=== PATIENT | female | born 2000 | race Caucasian/White ===

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

== ENCOUNTER → 2019-03-20 | Outpatient (CLI) | payer OTHER ==
[~2019-03-20] VITALS: Ht 172 cm; Wt 93.1 kg
[~2019-03-20] MED LIST changes: +FLUO40CA PO
== END | disposition home or self-care (01) ==
LOC: PREOP 05:39
PROVIDERS: ATTEND Surgery
DX: Z01.818 Encounter for other preprocedural examination (principal)

== ENCOUNTER 2019-03-25 13:00 | Day surgery (SDC) | payer MEDICAID, OTHER ==
[~2019-03-25] VITALS: Ht 172 cm; Wt 93.1 kg
[2019-03-25] MEDS ORDERED: LACTATED RINGERS 1,000 ML IV ONE (13:17)
[2019-03-25] MEDS ORDERED: LACTATED RINGERS 1,000 ML IV STA (13:32)
--- NOTE | 2019-03-25 13:46 | Progress Note-Pre Operative ---
Pre-Operative Progress Note H&P Reviewed The H&P was reviewed, patient examined and no changes noted. Time Seen by Provider: 13:42 Date H&P Reviewed: Mar 25, 2019 Time H&P Reviewed: 13:40 Pre-Operative Diagnosis: rectal bleed MERLYN WADSWORTH DO Mar 25, 2019 13:46
[2019-03-25 13:53] VITALS: BP 122/80
[2019-03-25] MEDS ORDERED: proPOfol 200 MG/20 ML (DIPRIVAN) VIAL IV ONE ×3 (14:18→14:34)
[2019-03-25] MEDS ORDERED: MIDAZOLAM 2 MG/2 ML (VERSED) VIAL ONE (14:20)
--- NOTE | 2019-03-25 14:43 | Anesthesia-General Post-Op ---
MAC Patient Condition Mental Status/LOC: Same as Preop Cardiovascular: Satisfactory Nausea/Vomiting: Absent Respiratory: Satisfactory Pain: Controlled Complications: Absent Post Op Complications Complications None Follow Up Care/Instructions Patient Instructions None needed. Anesthesiology Discharge Order Discharge Order Patient is doing well, no complaints, stable vital signs, no apparent adverse anesthesia problems. No complications reported per nursing. ARMOND CABA CRNA Mar 25, 2019 14:43
[2019-03-25 14:55] VITALS: BP 98/54
--- NOTE | 2019-03-25 14:58 | Progress Note-Post Operative ---
Post-Operative Progess Note Surgeon (s)/Agricultural Loan Officer (s) Surgeon MERLYN WADSWORTH DO Agricultural Loan Officer: Galindo Gruber MSIII Pre-Operative Diagnosis rectal bleed Post-Operative Diagnosis Anal fissure Internal Hemorrhoids Procedure & Operative Findings Date of Procedure 03/25/19 Procedure Performed/Findings Colonoscopy Anesthesia Type IV sedation by Anesthesiologist Estimated Blood Loss Estimated blood loss (mL): none Specimens/Packing Specimens Removed none MERLYN WADSWORTH DO Mar 25, 2019 14:58
--- NOTE | 2019-03-25 14:59 | Endoscopy Discharge Instruct ---
Endo Procedure/Findings Findings 1.: Internal Hemorrhoids 2.: Other Findings (anal fissure) Discharge Instructions - Activity: You might feel a little sleepy until tomorrow. This is due to the medicine you received to relax you. Until tomorrow, you should: NOT drive a car, operate machinery or power tools. NOT drink any alcoholic beverages. NOT make any important decisions or sign importortant papers. Do not return to work until tomorrow, unless otherwise instructed. Resume previous activities tomorrow. Diet: Start by taking liquids. If you tolerate liquids, advance to solid food. make an appointment for one week Notify Physician - If you experience excessive bleeding, unusual abdominal pain, fever, or chest pain, contact your doctor immediately. MERLYN WADSWORTH DO Mar 25, 2019 14:59
[2019-03-25 15:00] VITALS: BP 106/60
[2019-03-25 15:05] VITALS: BP 108/61
[2019-03-25 15:30] VITALS: BP 106/68
[2019-03-25 15:39] VITALS: BP 106/68
--- NOTE | 2019-03-26 00:39 | OPERATIVE REPORT ---
DATE OF SERVICE: PREOPERATIVE DIAGNOSIS: Rectal bleed. POSTOPERATIVE DIAGNOSES: 1. Anal fissure. 2. Internal hemorrhoids, poor prep. PROCEDURE: Colonoscopy. SURGEON: Ishan De La Rosa DO CHEST PAINTING LEADER: Galindo Gruber, medical student level 3. ANESTHESIA: IV sedation by the anesthesiologist. SPECIMENS: None. BLOOD LOSS: None. FLUIDS: Per anesthesia. POSTOPERATIVE CONDITION: Stable. INDICATION FOR PROCEDURE: The patient is a 18-year-old female who has had a couple of episodes of rectal bleeding and needed a workup. FINDINGS: The patient had some small internal hemorrhoids and she had pretty large anal fissure. Picture taken. This is most likely cause of her bleeding. She also unfortunately had a poor prep, but did not see any ulcerations or inflammation in the colon. PROCEDURE NOTE: After informed consent was obtained, the patient was brought to the endoscopy suite, placed in the bed left lateral decubitus position. She was administered IV sedation by the anesthesiologist who monitored her vitals the entire time, heart rate, blood pressure and pulse ox and the scope was inserted, pushed all the way into about 140 cm, able to get to the cecum, took a picture of appendiceal orifice, noted the ileocecal valve and then slowly withdrew the scope insufflating look circumferentially rivera looking at the cecum, up the ascending colon to the hepatic flexure, then down the transverse colon, splenic flexure, into the descending colon and then down into the sigmoid and finally into the rectum. Unfortunately, throughout here, she had a lot of retained fecal material most too large to be suctioned out, could see most the rivera, did not see the obvious inflammation, ulcerations, but again could have missed where some of this was covering, retroflexed the rectal vault, saw some minimal internal hemorrhoids, took a picture of this and then pulled the scope out. She had a pretty large anal fissure, took a picture of this. This is most likely the cause of her bleeding. The patient tolerated the procedure, recovered in endoscopy suite. Job ID: [id number] DocumentID: [id number] Dictated Date: 03/25/2019 16:36:02 Flower Grader Date: 03/26/2019 00:38:14 Dictated By: ISHAN DE LA ROSA DO [facility]
== END 2019-03-25 15:45 | disposition home or self-care (01) ==
LOC: ENDO 13:00
PROVIDERS: ATTEND Surgery
DX: K60.2 Anal fissure, unspecified (principal); K64.8 Other hemorrhoids; F41.9 Anxiety disorder, unspecified; F32.9 Major depressive disorder, single episode, unspecified; K58.9 Irritable bowel syndrome, unspecified; E66.9 Obesity, unspecified; Z68.31 Body mass index [BMI] 31.0-31.9, adult; Z88.2 Allergy status to sulfonamides; Z79.899 Other long term (current) drug therapy; Z87.440 Personal history of urinary (tract) infections; Z82.49 Family history of ischemic heart disease and other diseases of the circulatory system
CPT/HCPCS: 84703

== ENCOUNTER 2019-06-20 01:28 | Emergency (ER) | payer SELFPAY ==
[~2019-06-20] VITALS: Ht 175 cm; Wt 99.5 kg
[2019-06-20 01:47] LABS: BILIRUBIN,URINE NEGATIVE (NEGATIVE); CLARITY,URINE CLEAR; COLOR,URINE YELLOW; GLUCOSE, URINE (UA) NEGATIVE (NEGATIVE); KETONES,URINE NEGATIVE (NEGATIVE); LEUKOCYTE ESTERASE ,URINE TRACE (NEGATIVE); NITRITE,URINE NEGATIVE (NEGATIVE); PH,URINE 6.5 (5-9); PROTEIN,URINE NEGATIVE (NEGATIVE)
[2019-06-20 01:53] LABS: BACTERIA,URINE TRACE /HPF; RBC,URINE 0-2 /HPF; WBC,URINE 0-2 /HPF
[2019-06-20 01:56] LABS: AMPHETAMINE SCREEN, URINE NEGATIVE (NEGATIVE); BARBITURATE SCREEN URINE NEGATIVE (NEGATIVE); BENZODIAZEPINES SCREEN URINE NEGATIVE (NEGATIVE); CANNABINOID SCREEN, URINE NEGATIVE (NEGATIVE); COCAINE SCREEN URINE NEGATIVE (NEGATIVE); METHADONE STAT NEGATIVE (NEGATIVE); METHAMPHETAMINE SCREEN URINE S NEGATIVE (NEGATIVE); OPIATE SCREEN URINE NEGATIVE (NEGATIVE); OXYCODONE STAT NEGATIVE (NEGATIVE); PROPOXYPHENE STAT NEGATIVE (NEGATIVE); TRICYCLIC ANTIDEPRESSANTS SCRE NEGATIVE (NEGATIVE)
--- NOTE | 2019-06-20 02:17 | ED Chest Pain ---
General Chief Complaint: Chest Pain Stated Complaint: CP Nursing Triage Note: sternal chest pain radiating to back x1hr. Nursing Sepsis Screen: No Definite Risk Source: patient History of Present Illness Date Seen by Provider: Jun 20, 2019 Time Seen by Provider: 01:37 Initial Comments PT ARRIVES VIA POV FROM HOME WITH MOTHER PT STATES SHE WOKE UP AT 0030 WITH PAIN IN LEFT UPPER CHEST, AND ALL ACROSS MID AND UPPER BACK STATES IT HURTS TO TAKE A DEEP BREATH OR LAY DOWN NOTHING IMPROVES PAIN, BUT HAS NOT TAKEN ANYTHING FOR PAIN NO SHORTNESS OF BREATH NO PALPITATIONS NO COUGH NO FEVER STATES SHE TOOK HER BP AT 0030 AND WAS 160/116, SO CAME HERE. DENIES ANY HISTORY OF HTN OR CARDIAC PROBLEMS STATES SHE USED TO GET PNEUMONIA WHEN SHE WAS VERY YOUNG, BUT NO PROBLEMS FOR MANY YEARS STATES A COUPLE OF WEEKS AGO, SHE HAD SORE THROAT AND URI SYMPTOMS--WENT TO WALK IN CLINIC AT [facility], AND GOT A SHOT OF STEROIDS AND THOSE SYMPTOMS WENT AWAY AND HAVE NOT RETURNED. 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 --NOT NORMAL ACTIVITY FOR HER. LMP 05/27/19. NORMAL. NO CONTROL PCP: DR. BALDWIN Allergies and Home Medications Allergies Coded Allergies: Sulfa (Sulfonamide Antibiotics) (Unverified Allergy, Unknown, 09/08/10) Home Medications Ketorolac Tromethamine 10 Mg Tablet, 10 MG PO Q6H Prescribed by: CHAO HUNTLEY on 06/20/19346 Orphenadrine Citrate 100 Mg Tablet.er, 100 MG PO BID FOR MUSCLE SPASMS Prescribed by: CHAO HUNTLEY on 06/20/19346 Patient Home Medication List Home Medication List Reviewed: Yes Review of Systems Review of Systems Constitutional: no symptoms reported EENTM: No Symptoms Reported Respiratory: See HPI; Denies Cough, Denies Orthopnea, Denies Shortness of Air Cardiovascular: See HPI, Chest Pain; Denies Edema, Denies Irregular Heart Rate, Denies Lightheadedness, Denies Palpitations, Denies Syncope Gastrointestinal: No Symptoms Reported; Denies Abdominal Pain, Denies Nausea, Denies Vomiting Genitourinary: No Symptoms Reported Musculoskeletal: see HPI, back pain Skin: no symptoms reported Psychiatric/Neurological: No Symptoms Reported Endocrine: No Symptoms Reported Hematologic/Lymphatic: No Symptoms Reported Past [id number]-Fqyhzm-Mhlyom Hx Past Med/Social Hx: Reviewed and Corrections made Patient Social History Alcohol Use: Denies Use Recreational Drug Use: No Smoking Status: Never a Smoker 2nd Hand Smoke Exposure: Yes (STATES THAT PERSON SMOKES OUTSIDE) Recent Foreign Travel: No Contact w/Someone Who Travel: No Recent Infectious Disease Expo: No Recent Hopitalizations: No Physical Abuse: No Sexual Abuse: No Mistreated: No Fear: No Immunizations Up To Date Tetanus Booster (TDap): Less than 5yrs PED Vaccines UTD: Yes Date of Influenza Vaccine: Apr 09, 2018 Seasonal Allergies Seasonal Allergies: Yes Past Medical History Surgeries: Yes (WISDOM TEETH) Adenoidectomy, Appendectomy, Tonsillectomy Respiratory: Yes (PNEUMONIA SMALL CHILD. NO PROBLEMS SINCE) Pneumonia Cardiac: No Neurological: No : No Last Menstrual Period: May 27, 2019 Reproductive Disorders: No Female Reproductive Disorders: Denies Sexually Transmitted Disease: No HIV/AIDS: No Genitourinary: Yes UTI-Chronic Gastrointestinal: Yes Chronic Constipation, Chronic Diarrhea, Irritable Bowel Musculoskeletal: No Endocrine: No HEENT: Yes Tonsilitis Loss of Vision: Denies Hearing Impairment: Denies Cancer: No Psychosocial: Yes Anxiety, Depression Integumentary: Yes Psoriasis Blood Disorders: No Adverse Reaction/Blood Tranf: No (N/A) Family Medical History Kidney disease 03 MOTHER No Family History of: Abdominal aortic aneurysm Greer's disease Alcoholism Aphasia Cancer Cancer of colon Cataract Chest pain Congenital heart disease Congestive heart failure Cystic fibrosis Dementia Dysphagia Family history: Allergy Family history: Alzheimer's disease Family history: Arthritis Family history: Asthma Family history: Breast disease Family history: Cardiovascular disease Family history: Coronary thrombosis Family history: Diabetes mellitus Family history: Gastrointestinal disease Family history: Glaucoma Family history: Hypertension Family history: Osteoporosis Family history: Thyroid disorder Headache Hearing loss Heart disease Hereditary disease History of - anemia History of - disorder History of - respiratory disease History of drug abuse Human immunodeficiency virus (HIV) seropositivity Hypercholesterolemia Infertile Malignant neoplasm of lung Myocardial infarction Parkinson's disease Prostate cancer Psychotic disorder Seizure disorder Stroke Tuberculosis Visual impairment Renal Disease, Other Conditions/Hx Physical Exam Vital Signs Vital Signs - First Documented 06/20/19 01:32 Temp 36.1 Pulse 81 Resp 20 B/P (MAP) 146/96 (113) Pulse Ox 99 O2 Delivery Room Air Capillary Refill : Less Than 3 Seconds Height, Weight, BMI Height: 5'7.00" Weight: 186lbs. 8.0oz. 84.836343gd; 32.00 BMI Method:Stated General Appearance: No Apparent Distress HEENT: PERRL/EOMI, TMs Normal, Normal ENT Inspection, Pharynx Normal, Other (MILD POST NASAL DRAINAGE. NO SINUS TENDERNESS) Neck: Full Range of Motion, Normal Inspection, Non Tender, Supple; No Lymphadenopathy (L), No Lymphadenopathy (R) Respiratory: Normal Breath Sounds, No Accessory Muscle Use, No Respiratory Distress, Other (MILD LEFT UPPER CHEST TENDERNESS) Cardiovascular: Regular Rate, Rhythm, No Edema, No JVD, No Murmur, Normal Peripheral Pulses Gastrointestinal: Normal Bowel Sounds, No Organomegaly, No Pulsatile Mass, Non Tender, Soft Extremity: Normal Capillary Refill, Normal Inspection, Normal Range of Motion, Non Tender, No Calf Tenderness, No Pedal Edema Neurologic/Psychiatric: Alert, Oriented x3, No Motor/Sensory Deficits, Normal Mood/Affect, manager intranet II-XII Norm as Tested Skin: Normal Color, Warm/Dry; No Rash Other comments MILD DIFFUSE MID BACK TENDERNESS. FULL ROM Progress/Results/Core Measures Results/Orders Lab Results Laboratory Tests Test 06/20/19 01:40 Range/Units Urine Color YELLOW Urine Clarity CLEAR Urine pH 6.5 5-9 Urine Specific [place] 1.025 H 1.016-1.022 Urine Protein NEGATIVE NEGATIVE Urine Glucose (UA) NEGATIVE NEGATIVE Urine Ketones NEGATIVE NEGATIVE Urine Nitrite NEGATIVE NEGATIVE Urine Bilirubin NEGATIVE NEGATIVE Urine Urobilinogen 0.2 < = 1.0 MG/DL Urine Leukocyte Esterase TRACE NEGATIVE Urine RBC (Auto) NEGATIVE NEGATIVE Urine RBC 0-2 /HPF Urine WBC 0-2 /HPF Urine Squamous Epithelial Cells 10-25 H /HPF Urine Crystals NONE /LPF Urine Bacteria TRACE /HPF Urine Casts NONE /LPF Urine Mucus SMALL H /LPF Urine Culture Indicated NO Urine Opiates Screen NEGATIVE NEGATIVE Urine Oxycodone Screen NEGATIVE NEGATIVE Urine Methadone Screen NEGATIVE NEGATIVE Urine Propoxyphene Screen NEGATIVE NEGATIVE Urine Barbiturates Screen NEGATIVE NEGATIVE Ur Tricyclic Antidepressants Screen NEGATIVE NEGATIVE Urine Phencyclidine Screen NEGATIVE NEGATIVE Urine Amphetamines Screen NEGATIVE NEGATIVE Urine Methamphetamines Screen NEGATIVE NEGATIVE Urine Benzodiazepines Screen NEGATIVE NEGATIVE Urine Cocaine Screen NEGATIVE NEGATIVE Urine Cannabinoids Screen NEGATIVE NEGATIVE My Orders Orders - CHAO HUNTLEY DO Urine Bedside (06/20/19 01:37) Ekg Tracing (06/20/19 01:37) Monitor-Rhythm Ecg Trace Only (06/20/19 01:37) Drug Screen Stat (Urine) (06/20/19 01:37) Ua Culture If Indicated (06/20/19 01:37) Chest Pa/Lat (2 View) (06/20/19 02:02) Orphenadrine Injection (Norflex Injectio (06/20/19 03:00) Ketorolac Injection (Toradol Injection) (06/20/19 03:00) Diphenhydramine Injection (Benadryl Inje (06/20/19 03:00) Medications Given in ED Current Medications Medications Dose Ordered Sig/Senthil Route Start Time Stop Time Status Last Admin Dose Admin Diphenhydramine HCl 50 mg ONCE ONCE IM 06/20/19 03:00 06/20/19 03:02 DC 06/20/19 02:59 50 MG Ketorolac Tromethamine 60 mg ONCE ONCE IM 06/20/19 03:00 06/20/19 03:02 DC 06/20/19 02:59 60 MG Orphenadrine Citrate 60 mg ONCE ONCE IM 06/20/19 03:00 06/20/19 03:02 DC 06/20/19 02:58 60 MG Vital Signs/I&O 06/20/19 06/20/19 06/20/19 01:32 01:32 03:50 Temp 36.1 36.1 Pulse 81 64 Resp 20 16 B/P (MAP) 146/96 (113) 104/76 (113) Pulse Ox 99 99 O2 Delivery Room Air Room Air Room Air Blood Pressure Mean: 113 Progress Progress Note : Progress Note PAIN RESOLVED WITH TORADOL/NORFLEX/BENADRYL BP 104/76 AT DISMISSAL. Initial ECG Impression Date: Jun 20, 2019 Initial ECG Impression Time: 01:53 Initial ECG Rate: 63 Initial ECG Rhythm: Normal Sinus Initial ECG Impression: Normal Initial ECG Comparisson: No Previous ECG Available Diagnostic Imaging Comments CXR--NO ACUTE PROCESS, PENDING RADIOLOGIST REVIEW Reviewed: Reviewed by Me Departure Impression Primary Impression: Chest wall pain Disposition: HOME, SELF-CARE Condition: Improved Departure-Patient Inst. Referrals: DENISE BALDWIN MD (PCP/Family) Primary Care Physician Patient Instructions: Chest Pain That Is Not Caused by the Heart (DC), Costochondritis (DC), Muscle Strain (DC) Add. Discharge Instructions: MOIST HEAT TO SORE AREAS AT 20 MINUTE INTERVALS ACTIVITIES TOLERATED FOLLOW UP WITH YOUR DR IN 2-3 DAYS IF NO BETTER All discharge instructions reviewed with patient and/or family. Voiced understanding. Scripts Orphenadrine Citrate (Orphenadrine Citrate) 100 Mg Tablet.er 100 MG PO BID, #14 TAB FOR MUSCLE SPASMS Prov: CHAO HUNTLEY DO 06/20/19 Ketorolac Tromethamine (Ketorolac Tromethamine) 10 Mg Tablet 10 MG PO Q6H for Pain, #15 TAB Prov: CHAO HUNTLEY DO 06/20/19 CHAO HUNTLEY DO Jun 20, 2019 02:16
[2019-06-20] MEDS ORDERED: KETOROLAC 60 MG/2 ML VIAL IM ONE (03:00)
[2019-06-20] MEDS ORDERED: ORPHENADRINE 60 MG/2 ML (NORFLEX) AMP IM ONE (03:00)
[2019-06-20] MEDS ORDERED: diphenhydrAMINE 50 MG/ML INJ (BENADRYL) IM ONE (03:00)
[2019-06-20] MEDS ORDERED: KETO10TA PO (03:47)
[2019-06-20] MEDS ORDERED: ORPH100T PO (03:47)
[2019-06-20 03:50] VITALS: BP 104/76
--- NOTE | 2019-06-20 05:45 | Diagnostic Imaging Report ---
INDICATION: Chest pain COMPARISON: 01/24/2017 FINDINGS: Frontal and lateral views of the chest demonstrate normal heart size and pulmonary vascularity. The lungs are clear. There are no signs of infiltrate, pleural effusions or pneumothoraces. The visualized osseous structures show no acute abnormalities. IMPRESSION: 1. No acute process. No signs of infiltrates, effusions or pneumothoraces. Dictated by: Dictated on workstation # [id number]
== END 2019-06-20 03:52 | disposition home or self-care (01) ==
LOC: EDUNIT# 01:28 → ER 01:30
DX: R07.89 Other chest pain (principal); K58.9 Irritable bowel syndrome, unspecified; F41.9 Anxiety disorder, unspecified; F32.9 Major depressive disorder, single episode, unspecified; Z88.2 Allergy status to sulfonamides; Z90.89 Acquired absence of other organs; Z90.49 Acquired absence of other specified parts of digestive tract; Z90.710 Acquired absence of both cervix and uterus; Z87.440 Personal history of urinary (tract) infections
CPT/HCPCS: 71046; 80306; 81000; 84703; 93005; 93041; 96372

== ENCOUNTER 2021-01-18 22:53 | Emergency (ER) | payer OTHER ==
[~2021-01-18] VITALS: Ht 172 cm; Wt 99.5 kg
[~2021-01-18 22:53] MED LIST changes: +KETO10TA PO; +ORPH100T PO
[2021-01-18] MEDS ORDERED: ONDANSETRON 4 MG/2 ML (SDV) Z0FRAN IVP ONE (23:30)
[2021-01-18 23:41] LABS: BASOPHILS # (AUTO) 0.1 10^3/uL (0.0-0.1); BASOPHILS % (AUTO) 0 % (0-10); EOSINOPHILS # (AUTO) 0.2 10^3/uL (0.0-0.3); EOSINOPHILS % (AUTO) 1 % (0-10); HEMATOCRIT 41 % (35-52); HEMOGLOBIN 12.9 g/dL (11.5-16.0); LYMPHOCYTES # (AUTO) 3.2 10^3/uL (1.0-4.0); LYMPHOCYTES % (AUTO) 21 % (12-44); MEAN CORPUSCULAR HEMOGLOBIN 28 pg (25-34); MEAN CORPUSCULAR HGB CONC 32 g/dL (32-36); MEAN CORPUSCULAR VOLUME 88 fL (80-99); MONOCYTES # (AUTO) 0.8 10^3/uL (0.0-1.0); MONOCYTES % (AUTO) 5 % (0-12); NEUTROPHILS % (AUTO) 72 % (42-75); PLATELET COUNT 353 10^3/uL (130-400); WHITE BLOOD COUNT 15.2 10^3/uL (4.3-11.0)
[2021-01-18 23:48] LABS: BILIRUBIN,URINE NEGATIVE (NEGATIVE); CLARITY,URINE CLEAR; COLOR,URINE YELLOW; GLUCOSE, URINE (UA) NEGATIVE (NEGATIVE); KETONES,URINE NEGATIVE (NEGATIVE); LEUKOCYTE ESTERASE ,URINE NEGATIVE (NEGATIVE); NITRITE,URINE NEGATIVE (NEGATIVE); PROTEIN,URINE NEGATIVE (NEGATIVE)
[2021-01-18 23:52] LABS: ALBUMIN 4.6 GM/DL (3.2-4.5); CHLORIDE 104 MMOL/L (98-107); POTASSIUM 3.6 MMOL/L (3.6-5.0); SODIUM 142 MMOL/L (135-145)
[2021-01-18 23:54] LABS: CALCIUM 9.9 MG/DL (8.5-10.1)
[2021-01-18 23:54] LABS: BACTERIA,URINE FEW /HPF
[2021-01-18 23:55] LABS: GLUCOSE 137 MG/DL (70-105)
[2021-01-18 23:56] LABS: CARBON DIOXIDE 25 MMOL/L (21-32)
[2021-01-18 23:57] LABS: BAND NEUTROPHILS 1 %; BILIRUBIN,TOTAL 0.3 MG/DL (0.1-1.0); EOSINOPHILS % (MANUAL) 1 %; LYMPHOCYTES % (MANUAL) 18 %; MONOCYTES % (MANUAL) 3 %; NEUTROPHILS % (MANUAL) 77 %
[2021-01-18 23:58] LABS: ALKALINE PHOSPHATASE 148 U/L (40-136)
[2021-01-18 23:59] LABS: CREATININE SERUM 0.82 MG/DL (0.60-1.30); GFR ESTIMATED > 60
[2021-01-19] LABS: BUN/CREATININE RATIO 16
[2021-01-19 00:02] LABS: ALANINE AMINOTRANSFERASE 18 U/L (0-55); LIPASE 13 U/L (8-78)
[2021-01-19] MEDS ORDERED: KETOROLAC 30 MG/ML VIAL IVP ONE (02:00)
[2021-01-19] MEDS ORDERED: ONDA4TAB11 SL (02:04)
--- NOTE | 2021-01-19 02:04 | ED Abdominal Pain ---
General Chief Complaint: Abdominal/GI Problems Stated Complaint: ABD PAIN,N/V Nursing Triage Note: PT PRESENTS TO THE ED WITH 48HRS OF NAUSEA AND LOWER ABD. PAIN THAT THE PT VERBALIZES LOWER QUADRANT PAIN THAT RADIATES OUTWARD. DENIES COUGH, CP, VOMITING, DIARRHEA Source of Information: Patient Exam Limitations: No Limitations History of Present Illness Date Seen by Provider: Jan 18, 2021 Time Seen by Provider: 23:19 Initial Comments This 20-year-old young lady presents to the emergency room with complaints of pelvic pain that started on Monday and lasted for a few hours. It returned tonight and was worse. She had associated nausea without vomiting. She denies any diarrhea or constipation. She is not sexually active and denies or vaginal symptoms. There is been no blood in her stool or urine. Pain seems to be worse with sitting and better with standing up. She denies pain with walking. She has had a previous appendectomy. Pain was 8/10 at its worst and is now 3/10. It started as suprapubic and now seems to be more left adnexal. Allergies and Home Medications Allergies Coded Allergies: Sulfa (Sulfonamide Antibiotics) (Unverified Allergy, Unknown, 09/08/10) Home Medications Ketorolac Tromethamine 10 Mg Tablet, 10 MG PO Q6H Prescribed by: CHAO HUNTLEY on 06/20/19346 Ondansetron 4 Mg Tab.rapdis, 4 MG SL Q4H PRN for NAUSEA/VOMITING Prescribed by: GHAZALA AGUDELO on 01/19/21 0204 Orphenadrine Citrate 100 Mg Tablet.er, 100 MG PO BID FOR MUSCLE SPASMS Prescribed by: CHAO HUNTLEY on 06/20/19346 Patient Home Medication List Home Medication List Reviewed: Yes Review of Systems Review of Systems Constitutional: no symptoms reported EENTM: No Symptoms Reported Respiratory: No Symptoms Reported Cardiovascular: No Symptoms Reported Gastrointestinal: See HPI Genitourinary: See HPI Musculoskeletal: no symptoms reported Skin: no symptoms reported Psychiatric/Neurological: No Symptoms Reported Endocrine: No Symptoms Reported Past Eslfdoy-Jfinhk-Mvwxuo Hx Patient Social History Tobacco Use?: No Substance use?: No Alcohol Use?: No Pt feels they are or have been: No Immunizations Up To Date Tetanus Booster (TDap): Less than 5yrs PED Vaccines UTD: Yes Seasonal Allergies Seasonal Allergies: Yes Past Medical History Surgeries: Yes (WISDOM TEETH) Adenoidectomy, Appendectomy, Tonsillectomy Respiratory: Yes (PNEUMONIA SMALL CHILD. NO PROBLEMS SINCE) Pneumonia Cardiac: No Neurological: No Reproductive Disorders: No Female Reproductive Disorders: Denies Sexually Transmitted Disease: No HIV/AIDS: No Genitourinary: Yes UTI-Chronic Gastrointestinal: Yes Chronic Constipation, Chronic Diarrhea, Irritable Bowel Musculoskeletal: No Endocrine: No HEENT: Yes Tonsilitis Loss of Vision: Denies Hearing Impairment: Denies Cancer: No Psychosocial: Yes Anxiety, Depression Integumentary: Yes Psoriasis Blood Disorders: No Adverse Reaction/Blood Tranf: No (N/A) Family Medical History Kidney disease 03 MOTHER No Family History of: Abdominal aortic aneurysm [place]'s disease Alcoholism Aphasia Cancer Cancer of colon Cataract Chest pain Congenital heart disease Congestive heart failure Cystic fibrosis Dementia Dysphagia Family history: Allergy Family history: Alzheimer's disease Family history: Arthritis Family history: Asthma Family history: Breast disease Family history: Cardiovascular disease Family history: Coronary thrombosis Family history: Diabetes mellitus Family history: Gastrointestinal disease Family history: Glaucoma Family history: Hypertension Family history: Osteoporosis Family history: Thyroid disorder Headache Hearing loss Heart disease Hereditary disease History of - anemia History of - disorder History of - respiratory disease History of drug abuse Human immunodeficiency virus (HIV) seropositivity Hypercholesterolemia Infertile Malignant neoplasm of lung Myocardial infarction Parkinson's disease Prostate cancer Psychotic disorder Seizure disorder Stroke Tuberculosis Visual impairment Renal Disease, Other Conditions/Hx Physical Exam Vital Signs Vital Signs - First Documented 01/18/21 23:21 Temp 36.8 Pulse 90 Resp 18 B/P (MAP) 124/93 (103) Pulse Ox 96 O2 Delivery Room Air Capillary Refill : Less Than 3 Seconds Height/Weight/BMI Height: 5'7.00" Weight: 186lbs. 8.0oz. 84.699161ni; 33.00 BMI Method:Stated General Appearance: WD/WN, no apparent distress HEENT: normal ENT inspection Neck: normal inspection Respiratory: lungs clear, normal breath sounds, no respiratory distress Cardiovascular: regular rate, rhythm, no edema, no murmur Gastrointestinal: normal bowel sounds, soft, tenderness (Suprapubic/left adnexa ) Extremities: normal inspection, no pedal edema Neurologic/Psychiatric: no motor/sensory deficits, alert, normal mood/affect, oriented x 3 Skin: normal color, warm/dry Progress/Results/Core Measures Results/Orders Lab Results Laboratory Tests Test 01/18/21 23:27 01/18/21 23:42 Range/Units White Blood Count 15.2 H 4.3-11.0 10^3/uL Red Blood Count 4.63 3.80-5.11 10^6/uL Hemoglobin 12.9 11.5-16.0 g/dL Hematocrit 41 35-52 % Mean Corpuscular Volume 88 80-99 fL Mean Corpuscular Hemoglobin 28 25-34 pg Mean Corpuscular Hemoglobin Concent 32 32-36 g/dL Red Cell Distribution Width 13.0 10.0-14.5 % Platelet Count 353 130-400 10^3/uL Mean Platelet Volume 10.0 9.0-12.2 fL Immature Granulocyte % (Auto) 1 % Neutrophils (%) (Auto) 72 42-75 % Lymphocytes (%) (Auto) 21 12-44 % Monocytes (%) (Auto) 5 0-12 % Eosinophils (%) (Auto) 1 0-10 % Basophils (%) (Auto) 0 0-10 % Neutrophils # (Auto) 11.0 H 1.8-7.8 10^3/uL Lymphocytes # (Auto) 3.2 1.0-4.0 10^3/uL Monocytes # (Auto) 0.8 0.0-1.0 10^3/uL Eosinophils # (Auto) 0.2 0.0-0.3 10^3/uL Basophils # (Auto) 0.1 0.0-0.1 10^3/uL Immature Granulocyte # (Auto) 0.1 0.0-0.1 10^3/uL Neutrophils % (Manual) 77 % Lymphocytes % (Manual) 18 % Monocytes % (Manual) 3 % Eosinophils % (Manual) 1 % Band Neutrophils 1 % Sodium Level 142 135-145 MMOL/L Potassium Level 3.6 3.6-5.0 MMOL/L Chloride Level 104 98-107 MMOL/L Carbon Dioxide Level 25 21-32 MMOL/L Anion Gap 13 5-14 MMOL/L Blood Urea Nitrogen 13 7-18 MG/DL Creatinine 0.82 0.60-1.30 MG/DL Estimat Glomerular Filtration Rate > 60 BUN/Creatinine Ratio 16 Glucose Level 137 H 70-105 MG/DL Calcium Level 9.9 8.5-10.1 MG/DL Corrected Calcium 8.5-10.1 MG/DL Total Bilirubin 0.3 0.1-1.0 MG/DL Aspartate Amino Transf (AST/SGOT) 13 5-34 U/L Alanine Aminotransferase (ALT/SGPT) 18 0-55 U/L Alkaline Phosphatase 148 H 40-136 U/L C-Reactive Protein High Sensitivity 0.71 H 0.00-0.50 MG/DL Total Protein 8.0 6.4-8.2 GM/DL Albumin 4.6 H 3.2-4.5 GM/DL Lipase 13 8-78 U/L Serum Test, Qualitative NEGATIVE NEGATIVE Urine Color YELLOW Urine Clarity CLEAR Urine pH 6.0 5-9 Urine Specific Braman >=1.030 1.016-1.022 Urine Protein NEGATIVE NEGATIVE Urine Glucose (UA) NEGATIVE NEGATIVE Urine Ketones NEGATIVE NEGATIVE Urine Nitrite NEGATIVE NEGATIVE Urine Bilirubin NEGATIVE NEGATIVE Urine Urobilinogen 1.0 < = 1.0 MG/DL Urine Leukocyte Esterase NEGATIVE NEGATIVE Urine RBC (Auto) NEGATIVE NEGATIVE Urine RBC NONE /HPF Urine WBC NONE /HPF Urine Squamous Epithelial Cells 5-10 /HPF Urine Crystals NONE /LPF Urine Bacteria FEW H /HPF Urine Casts NONE /LPF Urine Mucus NEGATIVE /LPF Urine Culture Indicated NO Influenza Type A (RT-PCR) Not Detected Not Detecte Influenza Type B (RT-PCR) Not Detected Not Detecte SARS-CoV-2 RNA (RT-PCR) Not Detected Not Detecte My Orders Orders - GHAZALA PRATER MD Cbc With Automated Diff (01/18/21 23:19) Comprehensive Metabolic Panel (01/18/21 23:19) Hs C Reactive Protein (01/18/21 23:19) Hcg,Qualitative Serum (01/18/21 23:19) Lipase (01/18/21 23:19) Ua Culture If Indicated (01/18/21 23:19) Ed Iv/Invasive Line Start (01/18/21 23:19) Ondansetron Injection (Zofran Injectio (01/18/21 23:30) Manual Differential (01/18/21 23:27) Covid 19 Inhouse Test (01/19/21 00:44) Influenza A And B By Pcr (01/19/21 00:44) Ketorolac Injection (Toradol Injection) (01/19/21 02:00) Medications Given in ED Vital Signs/I&O 01/18/21 01/19/21 23:21 02:13 Temp 36.8 36.8 Pulse 90 72 Resp 18 18 B/P (MAP) 124/93 (103) 125/95 (103) Pulse Ox 96 100 O2 Delivery Room Air Room Air Blood Pressure Mean: 103 Progress Progress Note : Progress Note Covid screening was negative. Patient had leukocytosis but a low CRP. Serum was negative. Urine was unremarkable. Pain is improving without treatment. Patient was offered ultrasound for tomorrow morning which she accepted. Toradol was given prior to discharge. Departure Impression Primary Impression: Left lower quadrant pain Additional Impression: Nausea Disposition: HOME, SELF-CARE Condition: Improved Departure-Patient Inst. Decision time for Depature: 02:01 Referrals: DENISE BALDWIN MD (PCP/Family) Primary Care Physician Patient Instructions: Severe Abdominal Pain, Adult (DC) Add. Discharge Instructions: Start with a clear liquid diet. Consume only clear liquids until the results of your ultrasound is known. Return to the hospital at 7:30 this morning for an ultrasound. You may check in at the registration desk. Bring your order form with you. You may take Tylenol (acetaminophen) 1000 mg every 6 hours as needed for pain. Do not take any ibuprofen for at least 6 hours after receiving the Toradol in the emergency room. After that, you may take ibuprofen up to 600 mg every 6 hours as needed. Call with questions or concerns. Return to the ER if you have worsening symptoms. All discharge instructions reviewed with patient and/or family. Voiced understanding. Scripts Ondansetron (Ondansetron Odt) 4 Mg Tab.rapdis 4 MG SL Q4H PRN for NAUSEA/VOMITING, #10 TAB Prov: GHAZALA PRATER MD 01/19/21 Work/School Note: Work Release Form Date Seen in the Emergency Department: Jan 19, 2021 Return to Work: Jan 20, 2021 Restrictions: No Restrictions GHAZALA PRATER MD Jan 19, 2021 02:04
[2021-01-19 02:13] VITALS: BP 125/95
== END 2021-01-19 02:13 | disposition home or self-care (01) ==
LOC: EDUNIT# 22:53 → ER 22:54
DX: R10.32 Left lower quadrant pain (principal); R11.0 Nausea; Z20.822 Contact with and (suspected) exposure to COVID-19
CPT/HCPCS: 36415; 80053; 81000; 83690; 84703; 85007; 85027; 86141; 87636

== ENCOUNTER → 2021-01-19 | Outpatient (CLI) | payer OTHER ==
[~2021-01-19] MED LIST changes: +ONDA4TAB11 SL
--- NOTE | 2021-01-19 12:45 | Diagnostic Imaging Report ---
PROCEDURE: US PELVIC (NON OB) TECHNIQUE: Multiple real-time grayscale images were obtained over the pelvis in various projections transabdominally. INDICATION: Irregular menses. FINDINGS: The endometrium is 1 cm in thickness and appeared homogeneous in echotexture. There is no fibroid or myometrial mass. The ovaries are not well seen, but no adnexal lesion identified. There is no pelvic ascites. No findings of torsion. IMPRESSION: Unremarkable transabdominal pelvic ultrasound. Dictated by: Dictated on workstation # [id number]
== END ==
LOC: RAD 10:15
PROVIDERS: ATTEND Family Medicine
DX: N92.6 Irregular menstruation, unspecified (principal)
CPT/HCPCS: 76856

== ENCOUNTER → 2021-05-26 | Day surgery (SDC) | payer BC, OTHER ==
[~2021-05-26] VITALS: Ht 172.7 cm; Wt 90.9 kg
[~2021-05-26] MED LIST changes: +CYCL10TA25 PO; -CYCL10TA9 PO; +LIDOCAINE 1% INJ 20 ML 20 ML VIAL INJ ONE; +LIDOCAINE 1% INJ 20 ML 20 ML VIAL ONE
--- NOTE | 2021-05-26 15:04 | Diagnostic Imaging Report ---
INDICATION: Right lobe thyroid nodule. Patient presents for ultrasound guided fine-needle aspiration and biopsy. DETAILS OF THE PROCEDURE: The patient was brought to the procedure room and placed on the table in the supine position. Ultrasound imaging of the right neck was performed to evaluate for an appropriate entry site. The right neck was then prepped and draped in the usual sterile fashion. A small amount of 1% lidocaine was utilized for local anesthesia. A total of 4 passes was made into the dominant solid nodule in the right lobe of the thyroid utilizing 25-gauge needles and fine-needle aspiration technique. A single pass was made with a Rotex needle and a Rotex biopsy was performed. The needles were removed and hemostasis was obtained. The patient tolerated the procedure well and left the Department in stable condition. IMPRESSION: Successful ultrasound-guided fine-needle aspiration and Rotex biopsy of the dominant right lobe thyroid nodule. Pathology results are currently pending. Dictated by: Dictated on workstation # [id number]
== END ==
LOC: RAD 12:30
PROVIDERS: ATTEND Nurse Practitioner Family
DX: C73 Malignant neoplasm of thyroid gland (principal)
CPT/HCPCS: 10005

== ENCOUNTER 2021-09-07 21:31 | Emergency (ER) | payer BC ==
[~2021-09-07 21:31] MED LIST changes: -LIDOCAINE 1% INJ 20 ML 20 ML VIAL INJ ONE; -LIDOCAINE 1% INJ 20 ML 20 ML VIAL ONE
--- NOTE | 2021-09-07 21:49 | ED General ---
General Stated Complaint: MUSCLE CRAMPS Source of Information: Patient Exam Limitations: No Limitations (ELLIE CUEVA APRN) History of Present Illness Date Seen by Provider: Sep 07, 2021 Time Seen by Provider: 21:49 Initial Comments To ER with muscle cramps in her hands and feet since earlier today. She had a thyroidectomy by Dr. Stephen at [facility] in [place] 1 month ago. She has been on Tums, 4 of them (2000 mg calcium carbonate) twice a day. She has not had any problems with cramping until today. Timing/Duration: 1-2 Days Severity: Moderate Associated Systoms: Denies Symptoms (ELLIE CUEVA APRN) Allergies and Home Medications Allergies Coded Allergies: Sulfa (Sulfonamide Antibiotics) (Unverified Allergy, Unknown, 09/08/10) Patient Home Medication List Home Medication List Reviewed: Yes (ELLIE CUEVA APRN) Ketorolac Tromethamine (Ketorolac Tromethamine) 10 Mg Tablet, 10 MG PO Q6H Prescribed by: CHAO HUNTLEY on 06/20/19 0347 Ondansetron (Ondansetron Odt) 4 Mg Tab.rapdis, 4 MG SL Q4H PRN for NAUSEA/VOMITING Prescribed by: GHAZALA AGUDELO on 01/19/21 0204 Orphenadrine Citrate (Orphenadrine Citrate) 100 Mg Tablet.er, 100 MG PO BID Prescribed by: CHAO HUNTLEY on 06/20/19 0347 Review of Systems Review of Systems Constitutional: see HPI EENTM: see HPI Respiratory: no symptoms reported Cardiovascular: no symptoms reported Genitourinary: no symptoms reported Musculoskeletal: see HPI, muscle pain Skin: no symptoms reported Psychiatric/Neurological: No Symptoms Reported Hematologic/Lymphatic: No Symptoms Reported (ELLIE CUEVA APRN) Past Wkzftdx-Kvbovh-Xtqzui Hx Immunizations Up To Date Tetanus Booster (TDap): Less than 5yrs PED Vaccines UTD: Yes (ELLIE CUEVA APRN) Seasonal Allergies Seasonal Allergies: Yes (ELLIE CUEVA APRN) Past Medical History Surgeries: Yes (WISDOM TEETH) Adenoidectomy, Appendectomy, Tonsillectomy Respiratory: Yes (PNEUMONIA SMALL CHILD. NO PROBLEMS SINCE) Pneumonia Cardiac: No Neurological: No Reproductive Disorders: No Female Reproductive Disorders: Denies Sexually Transmitted Disease: No HIV/AIDS: No Genitourinary: Yes UTI-Chronic Gastrointestinal: Yes Chronic Constipation, Chronic Diarrhea, Irritable Bowel Musculoskeletal: No Endocrine: No HEENT: Yes Tonsilitis Loss of Vision: Denies Hearing Impairment: Denies Cancer: No Psychosocial: Yes Anxiety, Depression Integumentary: Yes Psoriasis Blood Disorders: No Adverse Reaction/Blood Tranf: No (N/A) (ELLIE CUEVA APRN) Family Medical History Kidney disease 03 MOTHER No Family History of: Abdominal aortic aneurysm [place]'s disease Alcoholism Aphasia Cancer Cancer of colon Cataract Chest pain Congenital heart disease Congestive heart failure Cystic fibrosis Dementia Dysphagia Family history: Allergy Family history: Alzheimer's disease Family history: Arthritis Family history: Asthma Family history: Breast disease Family history: Cardiovascular disease Family history: Coronary thrombosis Family history: Diabetes mellitus Family history: Gastrointestinal disease Family history: Glaucoma Family history: Hypertension Family history: Osteoporosis Family history: Thyroid disorder Headache Hearing loss Heart disease Hereditary disease History of - anemia History of - disorder History of - respiratory disease History of drug abuse Human immunodeficiency virus (HIV) seropositivity Hypercholesterolemia Infertile Malignant neoplasm of lung Myocardial infarction Parkinson's disease Prostate cancer Psychotic disorder Seizure disorder Stroke Tuberculosis Visual impairment Renal Disease, Other Conditions/Hx (ELLIE CUEVA APRN) Physical Exam Vital Signs Vital Signs - First Documented 09/07/21 21:44 Temp 36.2 Pulse 88 Resp 16 B/P (MAP) 127/91 (103) Pulse Ox 97 O2 Delivery Room Air (AUDI,CHAO K DO) Vital Signs Capillary Refill : (ELLIE CUEVA APRN) Height, Weight, BMI Height: 5'7.00" Weight: 186lbs. 8.0oz. 84.846098xi; 30.47 BMI Method:Stated General Appearance: No Apparent Distress, WD/WN Eyes: Bilateral Eye Normal Inspection, Bilateral Eye PERRL, Bilateral Eye EOMI HEENT: PERRL/EOMI, TMs Normal, Other (chvosteks sign negative) Neck: Full Range of Motion, Normal Inspection Respiratory: Normal Breath Sounds, No Accessory Muscle Use, No Respiratory Distress Cardiovascular: Regular Rate, Rhythm, Normal Peripheral Pulses Gastrointestinal: Normal Bowel Sounds, Non Tender, Soft Extremity: Normal Capillary Refill, Normal Inspection Neurologic/Psychiatric: Alert, Oriented x3 Skin: Normal Color, Warm/Dry (ELLIE CUEVA APRN) Progress/Results/Core Measures Suspected Sepsis SIRS Temperature: Pulse: Respiratory Rate: Laboratory Tests 09/07/21 21:50: White Blood Count 14.6H Blood Pressure / Mean: Laboratory Tests 09/07/21 21:50: Creatinine 0.71, INR Comment 1.0, Platelet Count 332, Total Bilirubin 0.3 (ELLIE CUEVA APRN) Results/Orders Lab Results Laboratory Tests Test 09/07/21 21:50 Range/Units White Blood Count 14.6 H 4.3-11.0 10^3/uL Red Blood Count 4.26 3.80-5.11 10^6/uL Hemoglobin 12.2 11.5-16.0 g/dL Hematocrit 38 35-52 % Mean Corpuscular Volume 89 80-99 fL Mean Corpuscular Hemoglobin 29 25-34 pg Mean Corpuscular Hemoglobin Concent 32 32-36 g/dL Red Cell Distribution Width 12.7 10.0-14.5 % Platelet Count 332 130-400 10^3/uL Mean Platelet Volume 10.2 9.0-12.2 fL Immature Granulocyte % (Auto) 0 % Neutrophils (%) (Auto) 71 42-75 % Lymphocytes (%) (Auto) 21 12-44 % Monocytes (%) (Auto) 8 0-12 % Eosinophils (%) (Auto) 1 0-10 % Basophils (%) (Auto) 0 0-10 % Neutrophils # (Auto) 10.3 H 1.8-7.8 10^3/uL Lymphocytes # (Auto) 3.0 1.0-4.0 10^3/uL Monocytes # (Auto) 1.1 H 0.0-1.0 10^3/uL Eosinophils # (Auto) 0.1 0.0-0.3 10^3/uL Basophils # (Auto) 0.0 0.0-0.1 10^3/uL Immature Granulocyte # (Auto) 0.1 0.0-0.1 10^3/uL Neutrophils % (Manual) 68 % Lymphocytes % (Manual) 25 % Monocytes % (Manual) 7 % Blood Morphology Comment NORMAL Prothrombin Time 13.5 12.2-14.7 SEC INR Comment 1.0 0.8-1.4 Sodium Level 141 135-145 MMOL/L Potassium Level 3.8 3.6-5.0 MMOL/L Chloride Level 105 98-107 MMOL/L Carbon Dioxide Level 24 21-32 MMOL/L Anion Gap 12 5-14 MMOL/L Blood Urea Nitrogen 13 7-18 MG/DL Creatinine 0.71 0.60-1.30 MG/DL Estimat Glomerular Filtration Rate 124 BUN/Creatinine Ratio 18 Glucose Level 106 H 70-105 MG/DL Calcium Level 9.7 8.5-10.1 MG/DL Corrected Calcium 9.5 8.5-10.1 MG/DL Total Bilirubin 0.3 0.1-1.0 MG/DL Aspartate Amino Transf (AST/SGOT) 12 5-34 U/L Alanine Aminotransferase (ALT/SGPT) 12 0-55 U/L Alkaline Phosphatase 114 40-136 U/L Total Protein 7.3 6.4-8.2 GM/DL Albumin 4.3 3.2-4.5 GM/DL (CHAO HUNTLEY DO) Vital Signs/I&O 09/07/21 09/07/21 21:44 22:28 Temp 36.2 36.2 Pulse 88 69 Resp 16 16 B/P (MAP) 127/91 (103) 111/74 Pulse Ox 97 98 O2 Delivery Room Air Room Air (CHAO HUNTLEY DO) Vital Signs/I&O Capillary Refill : (ELLIE CUEVA APRN) Departure Impression Primary Impression: Carpopedal spasm Disposition: 01 HOME, SELF-CARE Condition: Stable Departure-Patient Inst. Decision time for Depature: 22:19 (ELLIE CUEVA APRN) [place] [facility] [place] Primary Care Physician Patient Instructions: Muscle Spasm ED Add. Discharge Instructions: 1. Your calcium is normal and it is not low and is not the cause of your muscle spasms. Continue current medications and return to ER for any concerns. ATTENDING PHYSICIAN NOTE: I WAS PHYSICALLY PRESENT ER PHYSICIAN, BUT I WAS NOT INVOLVED IN ANY DECISION MAKING OR ANY CARE OF THIS PATIENT (CHAO HUNTLEY DO) ELLIE CUEVA APRN Sep 07, 2021 21:49 CHAO HUNTLEY DO Sep 08, 2021 01:20
[2021-09-07 22:02] LABS: BASOPHILS % (AUTO) 0 % (0-10); EOSINOPHILS # (AUTO) 0.1 10^3/uL (0.0-0.3); EOSINOPHILS % (AUTO) 1 % (0-10); HEMATOCRIT 38 % (35-52); HEMOGLOBIN 12.2 g/dL (11.5-16.0); LYMPHOCYTES % (AUTO) 21 % (12-44); MEAN CORPUSCULAR HEMOGLOBIN 29 pg (25-34); MEAN CORPUSCULAR HGB CONC 32 g/dL (32-36); MEAN CORPUSCULAR VOLUME 89 fL (80-99); MEAN PLATELET VOLUME 10.2 fL (9.0-12.2); MONOCYTES # (AUTO) 1.1 10^3/uL (0.0-1.0); MONOCYTES % (AUTO) 8 % (0-12); NEUTROPHILS # (AUTO) 10.3 10^3/uL (1.8-7.8); NEUTROPHILS % (AUTO) 71 % (42-75); PLATELET COUNT 332 10^3/uL (130-400); WHITE BLOOD COUNT 14.6 10^3/uL (4.3-11.0)
[2021-09-07 22:08] LABS: ALBUMIN 4.3 GM/DL (3.2-4.5); POTASSIUM 3.8 MMOL/L (3.6-5.0)
[2021-09-07 22:09] LABS: CALCIUM 9.7 MG/DL (8.5-10.1)
[2021-09-07 22:10] LABS: PROTHROMBIN TIME PATIENT 13.5 SEC (12.2-14.7); TOTAL PROTEIN 7.3 GM/DL (6.4-8.2)
[2021-09-07 22:12] LABS: BILIRUBIN,TOTAL 0.3 MG/DL (0.1-1.0)
[2021-09-07 22:14] LABS: CREATININE SERUM 0.71 MG/DL (0.60-1.30)
[2021-09-07 22:28] VITALS: BP 111/74
[2021-09-07 22:41] LABS: LYMPHOCYTES % (MANUAL) 25 %; MONOCYTES % (MANUAL) 7 %; NEUTROPHILS % (MANUAL) 68 %; RBC MORPH NORMAL
== END 2021-09-07 22:29 | disposition home or self-care (01) ==
LOC: EDUNIT# 21:31 → ER 21:33
DX: R29.0 Tetany (principal)
CPT/HCPCS: 36415; 80053; 82330; 85007; 85025; 85027; 85610; 99281

== ENCOUNTER → 2022-06-21 | Outpatient (CLI) | payer BC, OTHER ==
[2022-06-21 09:51] VITALS: BP 118/78
== END ==
LOC: CARD 09:00
PROVIDERS: ATTEND Internal Medicine Cardiovascular Disease
DX: R00.2 Palpitations (principal); R07.89 Other chest pain
CPT/HCPCS: 93225; 93226; C8929; C8930; 93306

== ENCOUNTER → 2023-02-15 | Outpatient (CLI) | payer BC ==
[~2023-02-15] MED LIST changes: -ORPH100T PO; +ORPH100T3 PO
[2023-02-15 17:40] LABS: BASOPHILS # (AUTO) 0.1 10^3/uL (0.0-0.1); BASOPHILS % (AUTO) 1 % (0-10); EOSINOPHILS # (AUTO) 0.2 10^3/uL (0.0-0.3); EOSINOPHILS % (AUTO) 2 % (0-10); HEMATOCRIT 39 % (35-52); HEMOGLOBIN 13.2 g/dL (11.5-16.0); LYMPHOCYTES % (AUTO) 28 % (12-44); MEAN CORPUSCULAR HEMOGLOBIN 30 pg (25-34); MEAN CORPUSCULAR HGB CONC 34 g/dL (32-36); MEAN CORPUSCULAR VOLUME 88 fL (80-99); MEAN PLATELET VOLUME 10.1 fL (9.0-12.2); MONOCYTES # (AUTO) 0.5 10^3/uL (0.0-1.0); MONOCYTES % (AUTO) 5 % (0-12); NEUTROPHILS % (AUTO) 65 % (42-75); PLATELET COUNT 315 10^3/uL (130-400); WHITE BLOOD COUNT 10.7 10^3/uL (4.3-11.0)
[2023-02-15 18:04] LABS: ERYTHROCYTE SEDIMENTATION RATE 16 MM/HR (0-20)
== END ==
LOC: LAB 17:21
PROVIDERS: ATTEND Internal Medicine Gastroenterology
DX: K52.29 Other allergic and dietetic gastroenteritis and colitis (principal); K90.0 Celiac disease
CPT/HCPCS: 36415; 83516; 85025; 85652; 86141; 86255